=== PATIENT | male | born 1960 | race Caucasian/White ===

== ENCOUNTER 2020-09-12 15:22 | Emergency (ER) | payer MEDICARE, SELFPAY ==
[2020-09-12 15:23] VITALS: BP 146/102; PULSE 64; RESP 16; TEMP 36.9; O2SAT 98; BMI 20.4
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
[2020-09-12 17:47] VITALS: BP 162/91; PULSE 62; RESP 18; O2SAT 100
[2020-09-12] MEDS: Ibuprofen 600 MG Tablet PO (17:47)
== END 2020-09-12 18:24 | disposition home or self-care (01) ==
PROVIDERS: Emergency Provider Emergency Medicine; PCP Family Medicine
DX: S16.1XXA Strain of muscle, fascia and tendon at neck level, initial encounter (principal); S09.90XA Unspecified injury of head, initial encounter; V44.5XXA Car driver injured in collision with heavy transport vehicle or bus in traffic accident, initial encounter; Y93.9 Activity, unspecified; Y92.9 Unspecified place or not applicable; F41.9 Anxiety disorder, unspecified; G62.9 Polyneuropathy, unspecified; Z79.82 Long term (current) use of aspirin; Z79.899 Other long term (current) drug therapy; F17.200 Nicotine dependence, unspecified, uncomplicated
CPT/HCPCS: 70450; 72125; 99284

== ENCOUNTER 2020-11-29 12:16 | Emergency (ER) | payer MEDICARE, SELFPAY ==
[2020-11-29 12:16] VITALS: BP 109/71; PULSE 75; RESP 15; O2SAT 97
[2020-11-29 12:21] VITALS: BP 109/71; PULSE 73; RESP 16; TEMP 36.8; O2SAT 99; BMI 18.7
--- NOTE | 2020-11-29 12:39 | VDLE_ITS ---
Reason For Study: Pain Procedure LEFT This is a venous duplex using B-mode, color GSV is normal. flow and spectral Doppler. CFV is compressible, spontaneous, phasic, Exam performed portable in ED. competent, and demonstrates normal A preliminary report was called and/or faxed augmentation. to Jennifer. FV is compressible, spontaneous, phasic, competent and demonstrates normal augmentation. POP V is compressible, spontaneous, phasic, competent and demonstrates normal augmentation. T/P Trunk is compressible. PTV is compressible. LT PerV is compressible. Interpretation Summary There is no evidence of left lower extremity deep vein thrombosis. Left great saphenous vein appears patent and compressible segmentally. Ordering Physician: Varun Rodriguez Referring Physician: Marco Juárez Performed By: Sonali Patel RVT
[2020-11-29 13:15] LABS: Absolute Lymphocyte Count 1.56 X10^3/uL (0.83-4.51); Absolute Neutrophil Count 2.2 X10^3/uL (2.0-7.7); Basophil# 0.02 X10^3/uL; Basophil% 0.5 % (0-1); Eosinophil# 0.07 X10^3/uL; Eosinophils% 1.6 % (0-5); Hematocrit 46.7 % (40-54); Hemoglobin 15.6 g/dL (13.0-16.5); Lymphocyte # 1.56 X10^3/ul (4.0); Lymphocyte % 35.1 % (19-41); Mean Corp Hgb Conc 33.4 g/dL (32-36); Mean Corpuscular Volume 110.7 fL (80-94); Mean Platelet Vol. 9.7 fl (6.2-12.0); Monocyte# 0.53 X10^3/uL; Monocyte% 11.9 % (0-10); NRBC Flagged by Analyzer 0 % (0-5); Neutrophil # 2.24 X10^3/uL (2.7-7.7); Neutrophil % 50.4 % (47-70); Platelet Count 101 K/mm3 (150-450); RBC Distribution Width CV 15.1 % (11.6-14.6); RBC Distribution Width SD 62.9 fl (35.1-43.9); Red Blood Count 4.22 M/mm3 (4.6-6.2); White Blood Count 4.4 K/mm3 (4.4-11.0)
[2020-11-29] MEDS: Ondansetron 4 MG/2 ML Vial IV (13:15)
[2020-11-29] MEDS: Morphine 4 MG/ML Syringe IV (13:15)
--- NOTE | 2020-11-29 13:18 | ART_ITS ---
Reason For Study: Absent REGIONAL MARKETING DIRECTOR pulse Procedure A bilateral lower extremity continuous wave Doppler with analog waveform analysis,segmental pressures,and ankle brachial indexes without exercise. Left Segmental Pressures Left brachial= 118mmHg. Left thigh = 121mmHg. Left calf = 40mmHg. Left dorsalis pedis artery = 46mmHg. The left dorsalis pedis waveforms are monophasic. The left posterior tibial artery waveforms are absent. Right Segmental Pressures Right brachial= 109mmHg. Right posterior tibial artery = 120mmHg. Right dorsalis pedis artery = 110mmHg. Right digit = 114 mmHg. The right dorsalis pedis waveforms are triphasic. The right posterior tibial artery waveforms are triphasic. Indices The right ankle brachial index by the dorsalis pedis is 0.93. The right ankle brachial index by the posterior tibial artery is 1.02. The right digital-brachial index is 0.97. The left ankle brachial index by the dorsalis pedis is 0.39. Interpretation Summary Essentially normal right lower extremity ankle-brachial indices and triphasic Doppler waveforms Normal right digital brachial indices Abnormal left lower extremity with severe disease and absent posterior tibial Doppler waveform with monophasic findings at the dorsalis pedis Noncalculable left digital brachial indices Ordering Physician: Varun Rodriguez Referring Physician: Franck Performed By: Sonali Patel RVT
[2020-11-29 13:24] LABS: International Normalized Ratio 1.2; Partial Thromboplast Time 29.3 Seconds (24.1-36.2); Prothrombin Time (Protime)PT. 14.9 SECONDS (11.7-14.9)
[2020-11-29 13:33] LABS: ALB/GLOB Ratio 0.6 RATIO (0.9-2.4); AST(SGOT) 14 U/L (15-37); Alanine Aminotransfer ALT/SGPT 11 U/L (16-61); Albumin, Serum 2.4 g/dL (3.2-5.0); Alkaline Phosphatase 91 U/L (45-117); Anion Gap 4 (5-15); BUN 9 mg/dL (7-18); BUN/Creat Ratio 12.9 RATIO (10-20); Calcium,Total 7.8 mg/dL (8.5-10.1); Chloride 102 mmol/L (98-107); EST Glomerular Filtration Rate 122 mL/min (>60); Est Glom Filt Rate - Afr Amer 148 mL/min (>60); Globulin 3.8 g/dL (2.2-4.2); Glucose 82 mg/dL (74-106); Potassium 4.1 mmol/L (3.5-5.1); Protein, Total 6.2 g/dL (6.4-8.2); Sodium Level 136 mmol/L (136-145)
--- NOTE | 2020-11-29 13:38 | ED.VISSUMM ---
- ER Visit Summary Date of Service: 11/29/20 Chief Complaint: Left lower extremity pain History of Present Illness: The patient is a 60 M with left lower extremity pain which is increasing over the past 2 weeks. He is being treated with gabapentin, but it is not helping. He never had this before. Nothing incited this, no trauma. Worse with touch and use. Nothing seems to help that. He denies any associated symptoms. He said he has a remote history of DVT, but completed his course of Eliquis and is not currently on anticoagulation. History of DVT, neuropathy, hypertension, major depressive disorder, TBI, chronic kidney disease, lung surgery. Physical Examination: Afebrile and vital signs unremarkable. Patient alert and oriented. No acute distress. Patient's lower extremities are dusky with stasis changes, worse on the left side. He has diffuse tenderness to palpation to his left foot and left mid and distal lower leg. I cannot palpate pulses. Skin is intact. Compartments are soft. No edema noted. Test Results: Platelets 101, otherwise CBC normal. ALT 11 and AST 14, otherwise CMP unremarkable. Coags normal. Duplex ultrasound showed no DVT but he does have an absent PT pulse and a monophasic DP pulse. PVRs pending. Emergency Department Course and Treatment: Patient was treated with pain medicine and Zofran. Work-up as above. There is concern for arterial occlusion. PVRs are pending. Right leg was unremarkable. Left leg showed an index and his calf of 0.34 and 0.39 and his DP. This suggests some occlusion in his popliteal level. I spoke with Dr. Mehta who advised consultation with a vascular surgeon at a higher level of care. Patient requested Marlo. We are waiting to hear back from accepting surgeon at this time. Treatment Plan: As above Disposition: Transfer pending Impression: Peripheral arterial disease left leg This note was generated with [employer] dictation software. It may contain incorrect words, spelling, and punctuation that were not noted in review of the chart prior to signing ED Disposition - Plan for ED Patient: Referrals: Marco Juárez DO [Primary Care Provider] -
--- NOTE | 2020-11-29 16:00 | CT_ITS ---
STUDY: CTA OF THE ABDOMINAL AORTA AND BILATERAL LOWER EXTREMITIES REASON FOR EXAM: Male, 60 years old. LEG PAIN X 2 WEEKS WITH DUSKY LEGS. LEFT LEG IS WORSE RADIATION DOSAGE (If Supplied By Facility): CTDIvol = ( 7.65 ) mGy, DLP = ( 952.86 ) mGycm TECHNIQUE: Axial CT angiography multi-detector data acquisition was obtained from the diaphragm to the feet following intravenous administration of 100mL Isovue-370. Axial images and MIP images were reconstructed from the axial data set. Post-processing of the angiographic images was performed, with multiplanar reformation and 3D reconstruction. Individualized dose optimization techniques were used for this CT. TECHNICAL QUALITY: Good COMPARISON: None. Descriptors of Narrowing: None (0%) Mild (< 50%) Moderate (50-70%) Severe (70-90%) Subtotal/Total Occlusion (90-100%) Non-Evaluable (technically non-diagnostic FINDINGS: Abdominal aorta: There is mild diffuse narrowing. Celiac and superior mesenteric arteries: There is moderate proximal narrowing of the celiac artery. Normal superior mesenteric artery Inferior mesenteric artery: No demonstrated narrowing. Right renal artery(arteries): There is mild proximal narrowing. Left renal artery(arteries): There is mild proximal narrowing. Right common iliac artery: There is mild diffuse narrowing. Right external iliac artery: No demonstrated narrowing. Right internal iliac artery: No demonstrated narrowing. Left common iliac artery: There is mild diffuse narrowing. Left external iliac artery: There is mild diffuse narrowing. Left internal iliac artery: There is mild diffuse narrowing. RIGHT LOWER EXTREMITY Right common femoral artery: No demonstrated narrowing. Right profundus femoris: No demonstrated narrowing. Right superficial femoral: No demonstrated narrowing. Right popliteal artery: Proximal occlusion. Right tibioperoneal trunk: Occlusion. Right anterior tibial artery: Occlusion. Right posterior tibial artery: Occlusion. Right peroneal artery: Occlusion. LEFT LOWER EXTREMITY Left common femoral artery: No demonstrated narrowing. Left profundus femoris: No demonstrated narrowing. Left superficial femoral: No demonstrated narrowing. Left popliteal artery: Distal occlusion. Left tibioperoneal trunk: Occlusion. Left anterior tibial artery: No demonstrated narrowing. Left posterior tibial artery: Occlusion. Left peroneal artery: Occlusion. There are chronic interstitial fibrotic changes of the lung bases. There are granulomatous calcifications. The visualized portions of the heart are within normal limits. Normal liver. Normal gallbladder and extrahepatic biliary system. There are multiple benign calcified granulomata of the spleen. Normal pancreas. Normal bilateral adrenal glands. Normal right kidney. There is 0.8 cm calcification of the cortex of the left kidney. Normal visualized stomach. Normal small intestine. Normal colon. The appendix is visualized and appears normal. Normal inferior vena cava. Normal retroperitoneum. There is a 0.3 cm stone in the urinary bladder. There is no free fluid in the abdomen or pelvis. Normal abdominal wall. Mild degenerative changes of the spine. CT/CTA Abd w/Runoff W/WO Contrast IMPRESSION: Bilateral popliteal and calf artery occlusions. Atherosclerotic calcifications of the aorta and branches. Moderate celiac artery narrowing Stone in the urinary bladder. Electronically Signed: Pollo Melara MD at 16:53 EST , Service support ,
[2020-11-29 16:25] VITALS: BP 108/71; PULSE 63; RESP 16; O2SAT 94
--- NOTE | 2020-11-29 17:11 | ED.DEP ---
ED Disposition - Plan for ED Patient: Instructions: ED Peripheral Artery Disease (PAD) Prescriptions: Clopidogrel Bisulfate [Plavix] 75 mg PO DAILY #30 tab Prescription Printed Referrals: Marco Juárez DO [Primary Care Provider] - Brent Sharma MD [STAFF PHYSICIAN] - Additional Instructions: CALL Dr Sharma for Appointment on
[2020-11-29] MEDS: Clopidogrel Bisulfate 75 MG Tablet PO (17:30)
--- NOTE | 2020-11-29 17:48 | ED.DEP ---
ED Disposition - Plan for ED Patient: Instructions: ED Peripheral Artery Disease (PAD) Prescriptions: Hydrocodone Bitart/Apap 5-325 [Williams 5MG-325MG] 1 tab PO Q6H PRN PRN 3 Days #10 tab PRN Reason: Pain Prescription Printed Clopidogrel Bisulfate [Plavix] 75 mg PO DAILY #30 tab Prescription Printed Referrals: Brent Sharma MD [STAFF PHYSICIAN] - Marco Juárez DO [Primary Care Provider] - Additional Instructions: CALL Dr Sharma for Appointment on
== END 2020-11-29 17:55 | disposition home or self-care (01) ==
LOC: ED 14:41
PROVIDERS: Emergency Provider Emergency Medicine; PCP Family Medicine
DX: I73.9 Peripheral vascular disease, unspecified (principal); I12.9 Hypertensive chronic kidney disease with stage 1 through stage 4 chronic kidney disease, or unspecified chronic kidney disease; N18.9 Chronic kidney disease, unspecified; G62.9 Polyneuropathy, unspecified; F32.9 Major depressive disorder, single episode, unspecified; Z86.718 Personal history of other venous thrombosis and embolism; Z87.820 Personal history of traumatic brain injury; Z79.02 Long term (current) use of antithrombotics/antiplatelets; Z79.899 Other long term (current) drug therapy; Z72.0 Tobacco use
CPT/HCPCS: 75635; 80053; 85025; 85610; 85730; 87426; 93923; 93971; 96361; 96374; 96375; 99285; J7030; Q9967; A4216; J2405